=== PATIENT | female | born 1980 | race Caucasian/White ===

== ENCOUNTER 2017-06-12 10:52 | Emergency (ER) | payer OTHER, BC ==
[~2017-06-12] VITALS: Ht 175.3 cm; Wt 99.8 kg
== END 2017-06-12 11:50 | disposition home or self-care (01) ==
LOC: ED 10:52
DX: S16.1XXA Strain of muscle, fascia and tendon at neck level, initial encounter (principal); S39.012A Strain of muscle, fascia and tendon of lower back, initial encounter; Z88.2 Allergy status to sulfonamides; V43.92XA Unspecified car occupant injured in collision with other type car in traffic accident, initial encounter
CPT/HCPCS: 99282